=== PATIENT | male | born 1980 | race Caucasian/White ===

== ENCOUNTER → 2019-06-27 | Outpatient (CLI) | payer OTHER ==
--- NOTE | 2019-06-27 14:40 | XR ---
EXAMINATION TYPE: XR chest 2V DATE OF EXAM: 06/27/2019 COMPARISON: Prior chest x-ray dated 01/25/2011 HISTORY: Cough, shortness of breath TECHNIQUE: Frontal and lateral views of the chest are obtained. FINDINGS: There is no focal air space opacity, pleural effusion, or pneumothorax seen. The cardiac silhouette size is within normal limits. The osseous structures are intact. IMPRESSION: No acute cardiopulmonary process.
== END | disposition home or self-care (01) ==
LOC: RADXRMAIN 10:37
PROVIDERS: ATTEND Family Medicine
DX: R05 Cough (principal); R06.02 Shortness of breath; R06.2 Wheezing
CPT/HCPCS: 71046

== ENCOUNTER → 2021-05-28 | Outpatient (CLI) | payer OTHER ==
--- NOTE | 2021-05-28 19:06 | US ---
EXAMINATION TYPE: US scrotum with doppler. DATE OF EXAM: 05/28/2021 COMPARISON: NONE CLINICAL HISTORY: 41-year-old male N50.9 Disorder of male genital organs. TECHNIQUE: Grayscale and color Doppler Duplex imaging performed of the scrotum. FINDINGS: EXAM MEASUREMENTS: TESTICLES: Right Testicle: 4.2 x 3.0 x 3.9 cm Left Testicle: 5.1 x 2.7 x 3.5 cm EPIDIDYMIS HEAD: Right Epididymis: 1.3 x 0.8 cm Left Epididymis: 1.1 x 1.2 cm Doppler performed to assess for testicular vascularity; good bilateral color flow and waveforms are s een. There is no evidence of testicular torsion. Presence of hydroceles: large hydrocele around right testicle measures 7.8 x 4.7 x 6.9 cm, small drew unt of fluid around left testicle. IMPRESSION: 1. No sonographic evidence for testicular torsion. 2. Large hydrocele on the right with fluid measuring up to nearly 8 cm. Small hydrocele on the left.
== END | disposition home or self-care (01) ==
LOC: RADUSWWP 15:26
PROVIDERS: ATTEND Family Medicine
DX: N43.3 Hydrocele, unspecified (principal)
CPT/HCPCS: 76870; 93975

== ENCOUNTER → 2022-12-24 | Outpatient (CLI) | payer OTHER ==
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
--- NOTE | 2022-12-24 14:10 | XR ---
EXAMINATION TYPE: XR chest 2V DATE OF EXAM: 12/24/2022 COMPARISON: 06/27/2019 TECHNIQUE: PA and lateral views submitted. HISTORY: Pain FINDINGS: The lungs are clear and there is no pneumothorax, pleural effusion, or focal pneumonia. Heart size normal and no overt failure. Osseous structures demonstrate hypertrophic and degenerative changes of the spine. AC joint arthropathy. Hyperinflation suggests COPD. IMPRESSION: 1. No acute process. Correlate for COPD.
--- NOTE | 2022-12-24 14:12 | XR ---
EXAM TYPE: LUMBAR SPINE X RAY SERIES COMPARISON: 12/01/2013 HISTORY: Pain TECHNIQUE: 3 views are submitted. FINDINGS: Alignment is anatomic. The pedicles are intact. The transverse processes are intact. There is no o r spondylolisthesis. Multilevel hypertrophic spurring with facet arthropathy L5-S1 mildly progressed from prior exam. IMPRESSION: 1. Multilevel hypertrophic spurring with facet arthropathy L5-S1.
--- NOTE | 2022-12-24 14:14 | XR ---
EXAMINATION TYPE: XR thoracic spine complete DATE OF EXAM: 12/24/2022 COMPARISON: NONE HISTORY: Pain TECHNIQUE: 3 views submitted FINDINGS: Alignment is anatomic. There is no compression deformities. Multilevel [id number] degenerative disc disease with spurring most marked involving the lower thoracic spine. Mild diffuse osteopenia. IMPRESSION: 1. Multilevel mild to moderate degenerative disc disease.
== END | disposition home or self-care (01) ==
LOC: RADCTMAIN 12:49
PROVIDERS: ATTEND Emergency Medicine
DX: S13.4XXA Sprain of ligaments of cervical spine, initial encounter (principal); S23.3XXA Sprain of ligaments of thoracic spine, initial encounter; S33.5XXA Sprain of ligaments of lumbar spine, initial encounter; S23.8XXA Sprain of other specified parts of thorax, initial encounter; M47.816 Spondylosis without myelopathy or radiculopathy, lumbar region; R07.9 Chest pain, unspecified; X58.XXXA Exposure to other specified factors, initial encounter
CPT/HCPCS: 71046; 72072; 72100; 72125